=== PATIENT | male | born 1990 | race Caucasian/White ===

== ENCOUNTER 2019-02-07 09:25 | Emergency (ER) | payer BC ==
[~2019-02-07] VITALS: Ht 170.2 cm; Wt 88.9 kg
--- NOTE | 2019-02-07 09:25 | NUR ---
Patient BIBA BLS, transferred to bed 4. RN evaluating patient at bedside.
[2019-02-07 09:27] VITALS: BP 136/95
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
--- NOTE | 2019-02-07 09:36 | NUR ---
BRYANNA PENA AT THE BEDSIDE EVALUATING THE PT AT THIS TIME.
--- NOTE | 2019-02-07 09:44 | NUR ---
PT TAKEN TO THE X-RAY.
--- NOTE | 2019-02-07 10:00 | NUR ---
BACK FROM X-RAY.
[2019-02-07 10:55] VITALS: BP 119/70
--- NOTE | 2019-02-07 10:55 | NUR ---
Patient discharged with v/s stable. Written and verbal after care instructions given and explained. Patient alert, oriented and verbalized understanding of instructions. Ambulatory with steady gait. All questions addressed prior to discharge. ID band removed. Patient advised to follow up with PMD. Rx of NAPROSYN 500 MG TAB given. Patient educated on indication of medication including possible reaction and side effects. Opportunity to ask questions provided and answered. Addendum: 02/07/19 at 1109 by AUGIE DISCHARGED BY BRYANNA PENA.
== END 2019-02-07 10:55 | disposition home or self-care (01) ==
LOC: MED 09:25
DX: S73.101A Unspecified sprain of right hip, initial encounter (principal); V89.2XXA Person injured in unspecified motor-vehicle accident, traffic, initial encounter; Y93.89 Activity, other specified; Y92.89 Other specified places as the place of occurrence of the external cause; Y99.8 Other external cause status
CPT/HCPCS: 73502; 99283